=== PATIENT | male | born 1940 | race Caucasian/White ===

== ENCOUNTER 2016-08-05 07:44 | Day surgery (SDC) | payer OTHER ==
[~2016-08-05 07:44] MED LIST: LIDOCAINE HCL 1% MPF SOL ONE; PROPOFOL 500 MG/50 ML EMU IV ONE
[2016-08-05 11:48] VITALS: BP 120/81; PULSE 72; RESP 24; TEMP 97.1; O2SAT 97
== END 2016-08-05 12:10 | disposition home or self-care (01) | DRG 951 ==
LOC: SURG 07:44
PROVIDERS: ATTEND Surgery
DX: Z12.11 Encounter for screening for malignant neoplasm of colon (principal); E11.9 Type 2 diabetes mellitus without complications
CPT/HCPCS: 82962; J2001; J2704

== ENCOUNTER 2017-02-11 03:46 | Emergency (ER) | payer MEDICARE, BC ==
[2017-02-11] MEDS ORDERED: NAPROXEN 500 MG TAB PO ONE (04:45)
[2017-02-11] MEDS ORDERED: NAPROXEN 500 MG TAB ONE (04:48)
[2017-02-11 05:00] VITALS: TEMP 96.5
[2017-02-11 05:00] LABS: CALCIUM 9.1 mg/dl (8.5-10.1); POTASSIUM 4.2 mMol/L (3.5-5.1)
[2017-02-11 05:10] LABS: BASOPHILS % (AUTO) 1 % (0-3); EOSINOPHILS % (AUTO) 2 % (0-9); HEMATOCRIT 42 % (39-53); MEAN CORPUSCULAR VOLUME 90 fL (80-100); MONOCYTES % (AUTO) 7.4 % (0-12); NEUTROPHILS % (AUTO) 77.4 % (37-80)
[2017-02-11 06:02] VITALS: BP 123/76; PULSE 70; RESP 18; O2SAT 93
== END 2017-02-11 05:50 | disposition home or self-care (01) | DRG 563 ==
LOC: ED 03:46
DX: S39.011A Strain of muscle, fascia and tendon of abdomen, initial encounter (principal); Z79.82 Long term (current) use of aspirin; W01.0XXA Fall on same level from slipping, tripping and stumbling without subsequent striking against object, initial encounter
CPT/HCPCS: 36415; 80048; 85025; 93005; 99282; 99283

== ENCOUNTER 2017-06-24 14:40 | Outpatient (CLI) | payer MEDICARE, BC ==
[2017-05-03 13:02] VITALS: O2SAT 90
== END 2017-06-24 14:41 | disposition home or self-care (01) | DRG 554 ==
LOC: CONVCARE 14:40
PROVIDERS: ATTEND Orthopaedic Surgery
DX: M17.11 Unilateral primary osteoarthritis, right knee (principal); M21.161 Varus deformity, not elsewhere classified, right knee; M17.12 Unilateral primary osteoarthritis, left knee; M21.162 Varus deformity, not elsewhere classified, left knee
CPT/HCPCS: 73564

== ENCOUNTER 2018-08-30 16:03 | Emergency (ER) | payer OTHER ==
[2018-08-30] MEDS ORDERED: ACETAMINOPHEN 650 MG SUP PR ONE ×2 (16:36→16:56)
[2018-08-30] MEDS ORDERED: SODIUM CHLORIDE 0.9% 1000ML 1,000 ML IV ONE ×2 (16:36→19:28)
[2018-08-30 17:05] LABS: BASOPHILS % (AUTO) 0 % (0-3); EOSINOPHILS % (AUTO) 0 % (0-9); HEMATOCRIT 45 % (39-53); HEMOGLOBIN 14.2 gm/dl (13.5-17.7); LYMPHOCYTES % (AUTO) 6.7 % (10-50); MEAN CORPUSCULAR HGB CONC 31.8 gm/dl (32.0-36.0); MEAN CORPUSCULAR VOLUME 94 fL (80-100); MONOCYTES % (AUTO) 5.7 % (0-12)
[2018-08-30 17:08] LABS: LACTIC ACID 2.4 mMol/L (0.0-2.0)
[2018-08-30 17:25] LABS: ALBUMIN 3.6 gm/dl (3.4-5.0); ALKALINE PHOSPHATASE 58 IU/L (46-116); ALT 22 IU/L (14-63); AST 20 IU/L (15-37); BILIRUBIN,TOTAL 0.7 mg/dl (0.2-1.0); BLOOD UREA NITROGEN 28 mg/dl (7-18); CALCIUM 9.7 mg/dl (8.5-10.1); CARBON DIOXIDE 30.2 mEq/L (21-32); CHLORIDE 101 mMol/L (98-107); CREATINE KINASE 173 U/L (39-308); CREATININE 1.89 mg/dl (0.80-1.30); CRP INFLAMMATORY 6.39 mg/dl (0.00-0.33); GLUCOSE 196 mg/dl (74-106); TOTAL PROTEIN 7.7 gm/dl (6.4-8.2); TROP I < 0.017 ng/ml (0.000-0.056)
[2018-08-30] MEDS ORDERED: CEFTRIAXONE 1 GM PDS 1 GM in SODIUM CHLORIDE 0.9% 50 ML 50 ML IV ONE (18:06)
[2018-08-30] MEDS ORDERED: CEFTRIAXONE 1 GM PDS ONE (18:13)
[2018-08-30 18:18] LABS: ABG PH 7.47 (7.35-7.45)
[2018-08-30] MEDS ORDERED: SODIUM CHLORIDE 0.9% 500 ML 500 ML IV ONE (18:18)
[2018-08-30 18:31] VITALS: TEMP 101.3
[2018-08-30 18:33] LABS: APPEARANCE,URINE Clear; BILIRUBIN,URINE NEGATIVE (NEGATIVE); COLOR,URINE Yellow; GLUCOSE, URINE (UA) NEGATIVE (NEGATIVE); KETONES,URINE NEGATIVE (NEGATIVE); LEUKOCYTE ESTERASE ,URINE NEGATIVE (NEGATIVE); NITRATE,URINE NEGATIVE (NEGATIVE); OCCULT BLOOD,URINE NEGATIVE (NEG-TRACE); PH,URINE 6.5; UROBILINOGEN,URINE 0.2 (0.2-1.0 EU)
[2018-08-30 18:40] LABS: BACTERIA RARE (< 1+); CRYSTALS NEGATIVE (0-3 AVE/HPF); EPITHELIAL CELLS NEGATIVE (SQUAMOUS); RBC,URINE NEGATIVE (0-3AV/HPF); WBC,URINE NEGATIVE (0-5AV/HPF)
[2018-08-30] MEDS ORDERED: PIPERACILLIN/TAZOBACT 3.375 GM 3.375 GM in SODIUM CHLORIDE 0.9% 100 ML 100 ML IV ONE (19:17)
[2018-08-30] MEDS ORDERED: PIPERACILLIN/TAZOBACT 3.375 GM PDS IV ONE (19:29)
[2018-08-30 20:03] VITALS: PULSE 70; RESP 16
[2018-08-30 23:12] VITALS: BP 107/53; O2SAT 94
== END 2018-08-30 20:37 | disposition short-term general hospital (02) | DRG 189 ==
LOC: ED 16:03
DX: J96.91 Respiratory failure, unspecified with hypoxia (principal); A41.9 Sepsis, unspecified organism; J18.1 Lobar pneumonia, unspecified organism; N17.9 Acute kidney failure, unspecified; R41.82 Altered mental status, unspecified
CPT/HCPCS: 36600; 70450; 71045; 80053; 81001; 82550; 82803; 83605; 83735; 83880; 84484; 85025; 86140; 87040; 87088; 93005; 96365; 96366; 99285; 99291; 99292; J0696; J2543

== ENCOUNTER 2018-10-07 14:18 | Emergency (ER) | payer OTHER | END 2018-10-07 16:10 | disposition home or self-care (01) | LOC: ED 14:18 ==